=== PATIENT | female | born 1965 | race Caucasian/White ===

== ENCOUNTER 2016-05-22 21:46 | Inpatient (IN) | payer OTHER ==
[2016-05-22 22:28] LABS: RBC URINE 2 /hpf (0-3); URINE BACTERIA RARE (<OCC); URINE BILIRUBIN NEGATIVE (NEGATIVE); URINE BLOOD NEGATIVE (NEGATIVE); URINE COLOR Yellow (YELLOW); URINE GLUCOSE (UA) NORMAL (Normal); URINE KETONE 1+ mg/dL (NEGATIVE); URINE LEUKOCYTE ESTERASE NEG Leu/uL (Negative); URINE PROTEIN NEGATIVE (NEGATIVE); URINE UROBILINOGEN NORMAL mg/dL (0.2-1.0); WBC URINE 3 /hpf (0-5)
[2016-05-22] MEDS ORDERED: Sodium Chloride 0.9% 1,000 ML IV ONE (22:28)
--- NOTE | 2016-05-22 22:28 | C.PDOC ---
History Of Present Illness Patient presents to the ED with complaints of abdominal pain, nausea, and diarrhea for a few days. Patient denies any back pain, vomiting, constipation, urinary complaints, or any other complaints. Time Seen by Provider: 05/22/16 22:28 Chief Complaint (Nursing): Abdominal Pain History Per: Patient History/Exam Limitations: no limitations Onset/Duration Of Symptoms: Days Current Symptoms Are (Timing): Still Present Severity: Mild Pain Scale Rating Of: 4 Location Of Pain/Discomfort: Epigastric Radiation Of Pain To:: None Quality Of Discomfort: "Pain" Associated Symptoms: Nausea, Diarrhea. denies: Vomiting, Back Pain, Constipation, Urinary Symptoms Exacerbating Factors: None Alleviating Factors: None Last Bowel Movement: Today Recent travel outside of the [place]: No Past Medical History Reviewed: Historical Data, Nursing Documentation, Vital Signs Vital Signs: Last Vital Signs Temp 98.2 F 05/22/16 22:48 Pulse 80 05/22/16 22:48 Resp 14 05/22/16 22:48 BP 120/80 05/22/16 22:48 Pulse Ox 98 05/22/16 22:48 - Medical History PMH: Benign Prostatic Hyperplasia, Bipolar Disorder, Depression, HTN Denies: Diabetes, Hepatitis, HIV, Seizures, Sexually Transmitted Disease Surgical History: Appendectomy - [facility] DETOXIFICATION SERVICES FOR SUBSTANCE ABUSE TREATMENT (10/02/15) GROUP TRAINING AND DEVELOPMENT MANAGER FOR SUBSTANCE ABUSE TREATMENT, PSYCHOEDUCATION (10/02/15) Family History: States: Unknown Family Hx - Social History Hx Tobacco Use: No Hx Alcohol Use: Yes Hx Substance Use: No - Immunization History Hx Tetanus Toxoid Vaccination: No Hx Influenza Vaccination: No Hx Pneumococcal Vaccination: No Review Of Systems Gastrointestinal: Positive for: Nausea, Abdominal Pain, Diarrhea. Negative for : Vomiting, Constipation Musculoskeletal: Negative for: Back Pain Physical Exam - Physical Exam Appears: Non-toxic Skin: Warm, Dry Gastrointestinal/Abdominal: Soft, Tenderness (Mild epigastric tenderness), No Guarding, No Rebound Extremity: Normal ROM, No Tenderness Neurological/Psych: Oriented x3, Normal Speech ED Course And Treatment - Laboratory Results Result Diagrams: 05/22/16 22:37 05/22/16 22:37 O2 Sat by Pulse Oximetry: 99 Pulse Ox Interpretation: Normal Progress Note: blood work, ivf, ct scan. spoke with assistant professor surgical technology. will come and see the pt Disposition Discussed With : Darnell Alfaro Comment: accepted the pt on his service and tookover the care at 2:07AM Doctor Will See Patient In The: ED Counseled Patient/Family Regarding: Studies Performed, Diagnosis - Disposition Disposition: HOSPITALIZED Disposition Time: 22:28 Condition: FAIR - POA Present On Arrival: None - Clinical Impression Clinical Impression: Abdominal pain, SBO (small bowel obstruction) - Scribe Statement The provider has reviewed the documentation as recorded by the Scribe Carlos Christy All medical record entries made by the Ladiibradha were at my direction and personally dictated by me. I have reviewed the chart and agree that the record accurately reflects my personal performance of the history, physical exam, medical decision making, and the department course for this patient. I have also personally directed, reviewed, and agree with the discharge instructions and disposition. Decision To Admit - Pt Status Changed To: Hospital Disposition Of: Observation - . Bed Request Type: Regular Admitting Physician: Darnell Alfaro Patient Diagnosis: Abdominal pain, SBO (small bowel obstruction)
[2016-05-22] MEDS ORDERED: Sodium Chloride 0.9% 1,000 ML ONE (22:41)
[2016-05-22 22:43] LABS: BASO # 0.1 K/uL (0.0-0.2); EOS # 0.1 K/uL (0.0-0.7); EOS % 0.9 % (0.0-4.0); HEMATOCRIT 40.6 % (34.0-47.0); LYMPH # 1.6 K/uL (1.0-4.3); LYMPH % 21.2 % (20.0-40.0); MEAN CELL VOLUME 85.2 fL (81.0-99.0); MEAN CORPUSCULAR HEMOGLOBIN 28.6 pg (27.0-31.0); MEAN CORPUSCULAR HGB CONC 33.6 g/dL (33.0-37.0); MEAN PLATELET VOLUME 8.5 fL (7.2-11.7); MONO # 0.6 K/uL (0.0-0.8); MONO % 7.7 % (0.0-10.0); NRBC % 0.1 % (0.0-2.0); RED CELL DISTRIBUTION WIDTH 12.7 % (11.5-14.5); WHITE BLOOD COUNT 7.7 K/uL (4.8-10.8)
[2016-05-22 22:52] LABS: CHLORIDE 96 mmol/L (98-107); POTASSIUM 2.7 mmol/L (3.6-5.2); SODIUM 139 mmol/L (132-148)
[2016-05-22 22:54] LABS: ALB/GLOB RATIO 1.3 (1.0-2.1); AST/SGOT 27 U/L (14-36); BILIRUBIN,TOTAL 0.4 mg/dL (0.2-1.3); CARBON DIOXIDE 27 mmol/L (22-30); GFR AFRICAN-AMERICAN > 60; TOTAL PROTEIN 7.2 g/dL (6.3-8.3)
[2016-05-22 22:55] LABS: ALKALINE PHOSPHATASE 61 U/L (38-126); ALT/SGPT 26 U/L (9-52); BLOOD UREA NITROGEN 14 mg/dL (7-17); CALCIUM 8.5 mg/dl (8.6-10.4); GLUCOSE,RANDOM 97 mg/dL (65-105)
[2016-05-22] MEDS ORDERED: Potassium Chloride 10 mEq ER Tab PO STA (22:55)
[2016-05-22] MEDS ORDERED: Potassium Chloride 20 mEq ER Tab PO ONE (23:05)
[2016-05-22] MEDS ORDERED: HYDROmorphone 1 mg/ml ISec IVP STA (23:42)
[2016-05-23] MEDS ORDERED: Iodixanol 320 MG/ML 100 ML BOTTLE IV ONE (00:13)
[2016-05-23] MEDS: Sodium Chloride 0.9% 1,000 ML IV SCH ×3 (04:02→23:12)
--- NOTE | 2016-05-23 04:57 | CP.PCM.HP ---
<Ling Fink - Last Filed: 05/23/16 04:42> History of Present Illness - History of Present Illness History of Present Illness: CC: "Abdominal pain and diarrhea" HPI: Patient is a 50F with medical history of hypertension and multiple abdominal surgeries including gastric bypass (10 years ago), appendectomy, , and tubal ligation who presents to the emergency department with abdominal pain and multiple episodes of watery diarrhea x 2 days. Patient states she came home from work when she suddenly developed severe sharp, 10/10 intensity left lower quadrant abdominal pain. Soon after developing pain, she started to have watery , light brown diarrhea and associated nausea. Patient states she has poor po intake. She tried to drink tea and have chicken soup but subsequently developed diarrhea. She also tried using a heating pad to her abdomen but had no relief of pain. Patient states she recently saw her primary care physician who was concerned in regards to patient having rapid weight loss. Patient states prior to developing current symptoms she had normal bowel movements. She denies fever , chills, recent travel, sick contacts, chest pain, shortness of breath, vomiting, back pain, hematochezia and urinary symptoms. PMD: Dr. Gates PMH: hypertension, alcohol abuse Medications: Hydrochlorothiazide 25 mg po daily, Amlodipine 5 mg po daily Allergies: NKDA Family History: DMII, HTN, Asthma Surgical History: gastric bypass, appendectomy, , tubal ligation, carpal tunnel release Social: Previously smoked 1ppd cigarettes for 16 years. Sober for 8 months. Denies illicit drug use. Present on Admission - Present on Admission Any Indicators Present on Admission: No History of DVT/PE: No History of Uncontrolled Diabetes: No Urinary Catheter: No Decubitus Ulcer Present: No Review of Systems - Constitutional Constitutional: Weight Loss. absent: Chills, Fever, Increased Appetite, Malaise - EENT Eyes: absent: Blurred Vision, Change in Vision Nose/Mouth/Throat: absent: Nasal Congestion, Nasal Discharge - Cardiovascular Cardiovascular: absent: Chest Pain, Dyspnea, Leg Edema - Respiratory Respiratory: absent: Cough, Dyspnea, Chest Congestion - Gastrointestinal Gastrointestinal: Abdominal Pain, Diarrhea, Nausea. absent: Bloating, Constipation, Heartburn, Hematochezia, Melena, Vomiting - Genitourinary Genitourinary: absent: Change in Urinary Stream, Dysuria, Urinary Urgency - Musculoskeletal Musculoskeletal: Arthralgias, Joint Swelling - Integumentary Integumentary: absent: Changing Lesions, New Lesions - Neurological Neurological: absent: Weakness - Psychiatric Psychiatric: absent: Anxiety, Depression - Endocrine Endocrine: absent: Cold Intolorance, Heat Intolorance Past Patient History - Infectious Disease Hx of Infectious Diseases: None - Past Medical History & Family History Past Medical History?: Yes - Past Social History Smoking Status: Never Smoked - CARDIAC Hx Cardiac Disorders: Yes Hx Hypertension: Yes - PULMONARY Hx Respiratory Disorders: No Hx Tuberculosis: No - NEUROLOGICAL Hx Neurological Disorder: No Hx Seizures: No - HEENT Hx HEENT Problems: No - RENAL Hx Chronic Kidney Disease: No - ENDOCRINE/METABOLIC Hx Endocrine Disorders: No - HEMATOLOGICAL/ONCOLOGICAL Hx Blood Disorders: No Hx Human Immunodeficiency Virus (HIV): No - INTEGUMENTARY Hx Dermatological Problems: No - MUSCULOSKELETAL/RHEUMATOLOGICAL Hx Falls: No - GASTROINTESTINAL Hx Gastrointestinal Disorders: No - GENITOURINARY/GYNECOLOGICAL Hx Genitourinary Disorders: No Hx Sexually Transmitted Disorders: No - PSYCHIATRIC Hx Substance Use: No - SURGICAL HISTORY Hx Surgeries: Yes Hx Appendectomy: Yes Hx Section: Yes Hx Gastric Bypass Surgery: Yes - ANESTHESIA Hx Anesthesia: Yes Hx Anesthesia Reactions: No Hx Malignant Hyperthermia: No Has any member of the family had a problem w/ anesthesia?: No Meds Allergies/Adverse Reactions: Allergies Allergy/AdvReac Type Severity Reaction Status Date / Time No Known Allergies Allergy Verified 10/02/15 13:25 Physical Exam - Constitutional Appears: Non-toxic, No Acute Distress - Head Exam Head Exam: ATRAUMATIC, NORMAL INSPECTION, NORMOCEPHALIC - Eye Exam Eye Exam: EOMI, Normal appearance, PERRL - ENT Exam ENT Exam: Mucous Membranes Moist - Respiratory Exam Respiratory Exam: Clear to Auscultation Bilateral, NORMAL BREATHING PATTERN. absent: Rales, Rhonchi, Wheezes - Cardiovascular Exam Cardiovascular Exam: +S1, +S2. absent: Tachycardia, Diastolic murmur, Systolic Murmur - GI/Abdominal Exam GI & Abdominal Exam: Hypoactive Bowel Sounds, Tenderness. absent: Distended, Firm, Guarding Additional comments: TTP left lower abdominal quadrant surgical scars noted to abdomen - Extremities Exam Extremities exam: Positive for: normal inspection. Negative for: pedal edema, tenderness - Back Exam Back exam: NORMAL INSPECTION - Neurological Exam Neurological exam: Alert, Oriented x3 - Psychiatric Exam Psychiatric exam: Normal Affect, Normal Mood - Skin Skin Exam: Intact, Normal Color Results - Vital Signs Recent Vital Signs: Last Vital Signs Temp 97.9 F 05/23/16 03:37 Pulse 67 05/23/16 03:37 Resp 18 05/23/16 04:10 BP 109/74 05/23/16 03:37 Pulse Ox 98 05/23/16 03:37 - Labs Result Diagrams: 05/22/16 22:37 05/22/16 22:37 Assessment & Plan - Assessment and Plan (Free Text) Assessment: 1. Abdominal Pain f/u Abdomen/Pelvis CT Zofran 4 mg IVP q6 PRN for nausea Toradol 30 mg IVP q6h prn for pain General Surgery, Dr. Capone, consulted. 2. Diarrhea f/u stool studies, c.diff f/u AM labs, electrolytes Continue Normal saline IV @100 3. Hypertension Continue home medications: Hydrochlorothiazide 25 mg po daily Norvasc 5 mg po daily Monitor 4. Prophylaxis Protonix 40 mg IVP daily SCD Heart Healthy Diet as tolerated - Date & Time Date: 05/23/16 Time: 05:08 <Darnell Alfaro - Last Filed: 05/23/16 06:35> Results - Vital Signs Recent Vital Signs: Last Vital Signs Temp 97.9 F 05/23/16 03:37 Pulse 67 05/23/16 03:37 Resp 18 05/23/16 04:10 BP 109/74 05/23/16 03:37 Pulse Ox 98 05/23/16 03:37 - Labs Result Diagrams: 05/22/16 22:37 05/22/16 22:37 Assessment & Plan - Date & Time Date: 05/23/16 (I have seen and examined the patient. I agree with the findings and plan of care as documented by Dr. Fink. Patient with abdominal pain. Consult to surgery. Follow up official CT results. Symptomatic treatment. Check stool studies for diarrhea. Monitor for acute changes.) Time: 06:34 Attending/Attestation - Attestation I have personally seen and examined this patient.: Yes I have fully participated in the care of the patient.: Yes I have reviewed all pertinent clinical information: Yes
[2016-05-23] MEDS ORDERED: Morphine 4 MG/ML VIAL IVP PRN (06:06)
--- NOTE | 2016-05-23 06:35 | CP.PCM.CON ---
History of Present Illness - History of Present Illness History of Present Illness: Surgery: Dr. Capone Reason for Consult: partial SBO HPI: 50 y/o female w/ pmh of HTN and gastric bypass surgery 9 years ago presents complaining of multiple episodes of diarrhea and left sided abdominal pain that started 2 days prior to presentation. She denies blood in diarrhea. She states the pain only occurs while she is having diarrhea. She states over the past 2 days her appetite has been poor. She denies vomiting but report nausea. She denies radiation of the pain to remaining abdomen. She report chills yesterday but denies fever. She states she has never had symptoms like this before. She reports having symptoms of gastritis about 1 year ago in which she underwent EGD. Patient reports anastomosis looked fine but she did have stomach inflammation. Otherwise no problems since gastric bypass since. She denies sick contacts or strange food types. PMH: HTN, cholelithiasis PSH: lap band then 1 year after lap gastric bypass, csection, open appy age 13 Social: denies ETOH, tobacco to drug use. Review of Systems - Review of Systems All systems: reviewed and no additional remarkable complaints except Review of Systems: unless stated in HPI - Constitutional Constitutional: Anorexia, Chills. absent: Fever - EENT Eyes: absent: Blurred Vision, Change in Vision Nose/Mouth/Throat: absent: Nasal Congestion, Nasal Discharge - Cardiovascular Cardiovascular: absent: Chest Pain, Diaphoresis - Respiratory Respiratory: absent: Cough, Wheezing - Gastrointestinal Gastrointestinal: Abdominal Pain, Cramping, Diarrhea, Nausea. absent: Belching , Bloating, Excessive Flatus, Hematochezia, Melena, Vomiting - Genitourinary Genitourinary: absent: Hematuria, Pyuria - Endocrine Endocrine: absent: Polydipsia, Polyphagia - Hematologic/Lymphatic Hematologic: absent: Easy Bleeding, Easy Bruising Past Patient History - Infectious Disease Hx of Infectious Diseases: None - Past Medical History & Family History Past Medical History?: Yes - Past Social History Smoking Status: Never Smoked - CARDIAC Hx Cardiac Disorders: Yes Hx Hypertension: Yes - PULMONARY Hx Respiratory Disorders: No Hx Tuberculosis: No - NEUROLOGICAL Hx Neurological Disorder: No Hx Seizures: No - HEENT Hx HEENT Problems: No - RENAL Hx Chronic Kidney Disease: No - ENDOCRINE/METABOLIC Hx Endocrine Disorders: No - HEMATOLOGICAL/ONCOLOGICAL Hx Blood Disorders: No Hx Human Immunodeficiency Virus (HIV): No - INTEGUMENTARY Hx Dermatological Problems: No - MUSCULOSKELETAL/RHEUMATOLOGICAL Hx Falls: No - GASTROINTESTINAL Hx Gastrointestinal Disorders: No - GENITOURINARY/GYNECOLOGICAL Hx Genitourinary Disorders: No Hx Sexually Transmitted Disorders: No - PSYCHIATRIC Hx Substance Use: No - SURGICAL HISTORY Hx Surgeries: Yes Hx Appendectomy: Yes Hx Section: Yes Hx Gastric Bypass Surgery: Yes - ANESTHESIA Hx Anesthesia: Yes Hx Anesthesia Reactions: No Hx Malignant Hyperthermia: No Has any member of the family had a problem w/ anesthesia?: No Meds Allergies/Adverse Reactions: Allergies Allergy/AdvReac Type Severity Reaction Status Date / Time No Known Allergies Allergy Verified 10/02/15 13:25 - Medications Medications: Current Medications Amlodipine Besylate (Norvasc) 5 mg PO DAILY [facility] Hydrochlorothiazide (Hydrodiuril) 25 mg PO DAILY [facility] Sodium Chloride (Sodium Chloride 0.9%) 1,000 mls @ 100 mls/hr IV .Q10H [facility] Last Admin: 05/23/16 04:02 Dose: 100 mls/hr Influenza Virus Vaccine (Afluria) 45 mcg IM .ONCE ONE Stop: 05/26/16 10:01 Ketorolac Tromethamine (Toradol) 30 mg IVP Q6 PRN PRN Reason: Pain, moderate (4-7) Last Admin: 05/23/16 03:59 Dose: 30 mg Morphine Sulfate (Morphine) 4 mg IVP Q4H PRN PRN Reason: Pain, severe (8-10) Morphine Sulfate (Morphine) 2 mg IVP Q4 PRN PRN Reason: Pain, moderate (4-7) Ondansetron HCl (Zofran Inj) 4 mg IVP Q6 PRN PRN Reason: Nausea/Vomiting Pantoprazole Sodium (Protonix Inj) 40 mg IVP DAILY [facility] Pneumococcal Polyvalent Vaccine (Pneumovax 23 Vaccine) 0.5 ml IM .ONCE ONE Stop: 05/26/16 10:01 Physical Exam - Constitutional Appears: Non-toxic, No Acute Distress - Head Exam Head Exam: ATRAUMATIC, NORMOCEPHALIC - Eye Exam Eye Exam: EOMI, Normal appearance - ENT Exam ENT Exam: Mucous Membranes Moist - Respiratory Exam Respiratory Exam: NORMAL BREATHING PATTERN. absent: Respiratory Distress - Cardiovascular Exam Cardiovascular Exam: REGULAR RHYTHM. absent: Tachycardia - GI/Abdominal Exam GI & Abdominal Exam: Soft, Tenderness (minimal in LLQ). absent: Distended, Guarding, Hernia Additional comments: multiple laparoscopic incisions fron gastric bypass and lap band procedures. Open appendectomy scar in RLQ - Rectal Exam Rectal Exam: Deferred - Extremities Exam Extremities exam: Positive for: normal inspection. Negative for: calf tenderness - Neurological Exam Neurological exam: Alert, Oriented x3 - Psychiatric Exam Psychiatric exam: Normal Affect, Normal Mood - Skin Skin Exam: Dry, Normal Color, Warm Results - Vital Signs Recent Vital Signs: Last Vital Signs Temp 97.9 F 05/23/16 03:37 Pulse 67 05/23/16 03:37 Resp 18 05/23/16 04:10 BP 109/74 05/23/16 03:37 Pulse Ox 98 05/23/16 03:37 - Labs Result Diagrams: 05/22/16 22:37 05/22/16 22:37 Assessment & Plan - Assessment and Plan (Free Text) Assessment: 50 y/o female w/ diarrhea and abdominal pain most likely 2/2 enteritis, less likely obstruction Plan: -NPO for now, possible trial of clears later today -IVFs -pain control -nausea control -serial abdominal exams -stool studies -medical management per primary team -d/w Dr. Liborio Gonzales PGY1
[2016-05-23 07:27] LABS: CHLORIDE 100 mmol/L (98-107)
[2016-05-23 07:28] LABS: BASO % 0.7 % (0.0-2.0); EOS # 0.1 K/uL (0.0-0.7); EOS % 1.6 % (0.0-4.0); HEMATOCRIT 35.9 % (34.0-47.0); LYMPH # 2.3 K/uL (1.0-4.3); LYMPH % 43.7 % (20.0-40.0); MEAN CELL VOLUME 85.1 fL (81.0-99.0); MEAN CORPUSCULAR HEMOGLOBIN 28.4 pg (27.0-31.0); MEAN CORPUSCULAR HGB CONC 33.4 g/dL (33.0-37.0); MONO # 0.5 K/uL (0.0-0.8); MONO % 8.9 % (0.0-10.0); NRBC % 0.1 % (0.0-2.0); POTASSIUM 2.7 mmol/L (3.6-5.2); RED CELL DISTRIBUTION WIDTH 12.7 % (11.5-14.5); SODIUM 140 mmol/L (132-148); WHITE BLOOD COUNT 5.4 K/uL (4.8-10.8)
[2016-05-23 07:30] LABS: BILIRUBIN,TOTAL 0.2 mg/dL (0.2-1.3); CARBON DIOXIDE 26 mmol/L (22-30); CHOLESTEROL 108 mg/dL (0-199); GFR AFRICAN-AMERICAN > 60
[2016-05-23 07:31] LABS: ALB/GLOB RATIO 1.4 (1.0-2.1); ALKALINE PHOSPHATASE 51 U/L (38-126); ALT/SGPT 24 U/L (9-52); AST/SGOT 27 U/L (14-36); BLOOD UREA NITROGEN 12 mg/dL (7-17); CALCIUM 8.1 mg/dl (8.6-10.4); GLUCOSE,RANDOM 74 mg/dL (65-105); MAGNESIUM 1.8 mg/dL (1.6-2.3); PHOSPHOROUS 4.3 mg/dL (2.5-4.5); TOTAL PROTEIN 6.2 g/dL (6.3-8.3)
--- NOTE | 2016-05-23 08:25 | CT ---
PROCEDURE: CT Abdomen and Pelvis with intravenous contrast HISTORY: Abdominal pain COMPARISON: None. TECHNIQUE: Axial computed tomographic images of the abdomen and pelvis were performed with intravenous contrast. Subsequently, sagittal coronal reformatted images were obtained. Radiation dose: Total exam DLP = 1432 mGy-cm. FINDINGS: LOWER THORAX: Mild bibasilar atelectasis. Question tiny hiatal hernia. LIVER: Unremarkable. No gross lesion or ductal dilatation. GALLBLADDER AND BILE DUCTS: Contracted gallbladder. Cholelithiasis. PANCREAS: Unremarkable. No gross lesion or ductal dilatation. SPLEEN: Unremarkable. ADRENALS: Nodular thickening of the adrenal glands. KIDNEYS AND URETERS: Question punctate 1-2 millimeter nonobstructive calculus in the mid right renal pelvis. VASCULATURE: Mild atherosclerotic calcification in the aorta. BOWEL: Mildly prominent fluid-filled small bowel loops in the pelvis measuring up to 3 centimeters. This may represent focal ileus/ enteritis versus evolving partial small bowel obstruction versus additional etiology. Clinical correlation and if indicated follow-up may be obtained. Stomach demonstrates changes of prior gastric bypass. APPENDIX: Appendix not well identified. PERITONEUM: Unremarkable. No free fluid. No free air. LYMPH NODES: Unremarkable. No enlarged lymph nodes. BLADDER: Decompressed urinary bladder. REPRODUCTIVE: Unremarkable. BONES: Moderate degenerative changes in the spine. Mild diffuse osteopenia. Prominent posterior disc osteophyte complex at the L5-S1 level. OTHER FINDINGS: None. IMPRESSION: Mildly prominent fluid-filled small bowel loops in the pelvis measuring up to 3 centimeters. It is unclear if this represents focal ileus/ enteritis versus evolving early partial small bowel obstruction versus additional etiology. Please correlate clinically and if indicated follow-up may be obtained. Contracted gallbladder. Cholelithiasis. Question punctate 1-2 millimeter nonobstructive calculus in the mid right renal pelvis. These findings were preliminarily reported at 12:57 a.m. on 05/23/[address] Bridger Wu from [employer].
--- NOTE | 2016-05-23 09:00 | CP.PCM.PN ---
Subjective - Date & Time of Evaluation Date of Evaluation: 05/23/16 Time of Evaluation: 07:50 - Subjective Subjective: PGY1 Medicine Note - Dr. Keenan Patient seen and examined at bedside. No overnight events per nursing. Patient reports last episode of diarrhea last night. C/o LLQ pain, 2/10. Tolerating liquid diet; denies n/v, d/c. Denies f/c, chest pain, SOB, back pain, hematochezia, urinary symptoms, or any additional complaints. Asking to go home soon. Objective - Vital Signs/Intake and Output Vital Signs (last 24 hours): Temp Pulse Resp BP Pulse Ox 97.6 F 62 20 108/72 96 05/23/16 08:00 05/23/16 08:00 05/23/16 08:00 05/23/16 08:00 05/23/16 08:00 - Medications Medications: Current Medications Amlodipine Besylate (Norvasc) 5 mg PO DAILY [facility] Hydrochlorothiazide (Hydrodiuril) 25 mg PO DAILY [facility] Sodium Chloride (Sodium Chloride 0.9%) 1,000 mls @ 100 mls/hr IV .Q10H [facility] Last Admin: 05/23/16 04:02 Dose: 100 mls/hr Influenza Virus Vaccine (Afluria) 45 mcg IM .ONCE ONE Stop: 05/26/16 10:01 Ketorolac Tromethamine (Toradol) 30 mg IVP Q6 PRN PRN Reason: Pain, moderate (4-7) Last Admin: 05/23/16 03:59 Dose: 30 mg Morphine Sulfate (Morphine) 4 mg IVP Q4H PRN PRN Reason: Pain, severe (8-10) Morphine Sulfate (Morphine) 2 mg IVP Q4 PRN PRN Reason: Pain, moderate (4-7) Ondansetron HCl (Zofran Inj) 4 mg IVP Q6 PRN PRN Reason: Nausea/Vomiting Pantoprazole Sodium (Protonix Inj) 40 mg IVP DAILY [facility] Pneumococcal Polyvalent Vaccine (Pneumovax 23 Vaccine) 0.5 ml IM .ONCE ONE Stop: 05/26/16 10:01 - Labs Labs: 05/23/16 07:11 05/23/16 07:11 - Additional Findings Additional findings: - Constitutional Appears: Non-toxic, No Acute Distress - Head Exam Head Exam: ATRAUMATIC, NORMAL INSPECTION, NORMOCEPHALIC - Eye Exam Eye Exam: EOMI, Normal appearance, PERRL - ENT Exam ENT Exam: Mucous Membranes Moist - Respiratory Exam Respiratory Exam: Clear to Auscultation Bilateral, NORMAL BREATHING PATTERN. absent: Rales, Rhonchi, Wheezes - Cardiovascular Exam Cardiovascular Exam: +S1, +S2. absent: Tachycardia, Diastolic murmur, Systolic Murmur - GI/Abdominal Exam GI & Abdominal Exam: Hypoactive Bowel Sounds, Tenderness. absent: Distended, Firm, Guarding Additional comments: LLQ tenderness, persists surgical scars noted to abdomen - Extremities Exam Extremities exam: Positive for: normal inspection. Negative for: pedal edema, tenderness - Back Exam Back exam: NORMAL INSPECTION - Neurological Exam Neurological exam: Alert, Oriented x3 - Psychiatric Exam Psychiatric exam: Normal Affect, Normal Mood - Skin Skin Exam: Intact, Normal Color Assessment and Plan - Assessment and Plan (Free Text) Assessment: 1. Abdominal Pain 05/23: Reduced pain medication. -Abdomen/Pelvis CT 05/22: -Mildly prominent fluid-filled small bowel loops in the pelvis measuring up to 3 centimeters. It is unclear if this represents focal ileus/ enteritis versus evolving early partial small bowel obstruction versus additional etiology -Contracted gallbladder. Cholelithiasis. -Question punctate 1-2 millimeter nonobstructive calculus in the mid right renal pelvis. -Surgery Consult, Dr. Capone, f/u recs -NPO for now, possible trial of clears -IVFs, pain control, nausea control -serial abdominal exams Zofran 4 mg IVP q6 PRN for nausea Toradol 30 mg IVP q6h prn for pain 2. Diarrhea f/u stool studies f/u c.diff f/u AM labs, electrolytes Continue Normal saline IV @100 3. Hypertension 05/23: STOP Hydrochlorothiazide 25 mg po daily - due to hypokalemia 05/23: STOP Norvasc 5 mg po daily Monitor BP 4. Electrolyte imbalance -Hypokalemia, k2.7 - monitor and replete 5. Prophylaxis Protonix 40 mg IVP daily [facility] Heart Healthy Diet as tolerated
[2016-05-23] MEDS ORDERED: Potassium Chloride 20 mEq/15 ml LIQ UD PO ONE ×3 (09:58→22:45)
[2016-05-23] MEDS ORDERED: Potassium Chloride 20 mEq ER Tab PO ONE (10:45)
[2016-05-23] MEDS: Potassium Chloride 10 mEq 100 ML IVPB SCH ×2 (11:01→16:09)
[2016-05-23] MEDS ORDERED: Potassium Chloride 20 mEq 100 ML IVPB ONE ×2 (16:58→22:00)
[2016-05-23 21:17] LABS: CHLORIDE 100 mmol/L (98-107); POTASSIUM 3.4 mmol/L (3.6-5.2); SODIUM 136 mmol/L (132-148)
[2016-05-23 21:20] LABS: BLOOD UREA NITROGEN 9 mg/dL (7-17); CALCIUM 7.8 mg/dl (8.6-10.4); CARBON DIOXIDE 23 mmol/L (22-30); GFR AFRICAN-AMERICAN > 60; GLUCOSE,RANDOM 80 mg/dL (65-105)
[2016-05-23] MEDS: Potassium Chloride 20 mEq/15 ml LIQ UD PO ONE ×2 (21:45→22:12)
[2016-05-24 01:17] VITALS: RESP 20
[2016-05-24 07:25] LABS: BASO % 0.8 % (0.0-2.0); EOS # 0.1 K/uL (0.0-0.7); HEMATOCRIT 38.3 % (34.0-47.0); LYMPH # 1.4 K/uL (1.0-4.3); LYMPH % 26.6 % (20.0-40.0); MEAN CELL VOLUME 85.9 fL (81.0-99.0); MEAN CORPUSCULAR HEMOGLOBIN 28.5 pg (27.0-31.0); MEAN CORPUSCULAR HGB CONC 33.2 g/dL (33.0-37.0); MEAN PLATELET VOLUME 9.1 fL (7.2-11.7); MONO # 0.6 K/uL (0.0-0.8); MONO % 11.5 % (0.0-10.0); NRBC % 0.1 % (0.0-2.0); RED CELL DISTRIBUTION WIDTH 12.3 % (11.5-14.5); WHITE BLOOD COUNT 5.2 K/uL (4.8-10.8)
[2016-05-24 07:44] LABS: CHLORIDE 102 mmol/L (98-107); POTASSIUM 3.9 mmol/L (3.6-5.2); SODIUM 138 mmol/L (132-148)
[2016-05-24 07:46] LABS: AST/SGOT 35 U/L (14-36); BILIRUBIN,TOTAL 0.4 mg/dL (0.2-1.3); CARBON DIOXIDE 22 mmol/L (22-30); GFR AFRICAN-AMERICAN > 60
[2016-05-24 07:47] LABS: ALB/GLOB RATIO 1.3 (1.0-2.1); ALKALINE PHOSPHATASE 52 U/L (38-126); ALT/SGPT 27 U/L (9-52); BLOOD UREA NITROGEN 8 mg/dL (7-17); CALCIUM 8.3 mg/dl (8.6-10.4); GLUCOSE,RANDOM 70 mg/dL (65-105); MAGNESIUM 1.8 mg/dL (1.6-2.3); PHOSPHOROUS 3.5 mg/dL (2.5-4.5); TOTAL PROTEIN 6.4 g/dL (6.3-8.3)
--- NOTE | 2016-05-24 08:33 | CP.PCM.PN ---
Subjective - Date & Time of Evaluation Date of Evaluation: 05/24/16 Time of Evaluation: 07:00 - Subjective Subjective: General Surgery Progress Note: Dr. Capone Patient seen and examined this morning. NAOMY. Patient reports she is still having multiple bouts of diarrhea. Reports some abdominal pain along LLQ. Denies fever/chills, nausea/vomiting. Objective - Vital Signs/Intake and Output Vital Signs (last 24 hours): Temp Pulse Resp BP Pulse Ox 98.2 F 68 20 110/76 97 05/24/16 00:00 05/24/16 00:00 05/24/16 00:00 05/24/16 00:00 05/24/16 00:00 Intake and Output: 05/24/16 05/24/16 06:59 18:59 Intake Total 800 Balance 800 - Medications Medications: Current Medications Sodium Chloride (Sodium Chloride 0.9%) 1,000 mls @ 100 mls/hr IV .Q10H [facility] Last Admin: 05/23/16 18:27 Dose: 100 mls/hr Influenza Virus Vaccine (Afluria) 45 mcg IM .ONCE ONE Stop: 05/26/16 10:01 Morphine Sulfate (Morphine) 1 mg IVP Q4 PRN PRN Reason: Pain, moderate (4-7) Last Admin: 05/24/16 06:35 Dose: 1 mg Ondansetron HCl (Zofran Inj) 4 mg IVP Q6 PRN PRN Reason: Nausea/Vomiting Last Admin: 05/23/16 13:40 Dose: 4 mg Pantoprazole Sodium (Protonix Inj) 40 mg IVP DAILY [facility] Last Admin: 05/23/16 11:00 Dose: 40 mg Pneumococcal Polyvalent Vaccine (Pneumovax 23 Vaccine) 0.5 ml IM .ONCE ONE Stop: 05/26/16 10:01 - Labs Labs: 05/24/16 07:14 05/24/16 07:14 - Constitutional Appears: No Acute Distress - Head Exam Head Exam: NORMOCEPHALIC - Eye Exam Eye Exam: Normal appearance - ENT Exam ENT Exam: Mucous Membranes Moist - Respiratory Exam Respiratory Exam: NORMAL BREATHING PATTERN - Cardiovascular Exam Cardiovascular Exam: +S1, +S2 - GI/Abdominal Exam GI & Abdominal Exam: Soft. absent: Tenderness - Neurological Exam Neurological Exam: Alert, Awake, Oriented x3 - Psychiatric Exam Psychiatric exam: Normal Mood - Skin Skin Exam: Dry, Intact, Warm Assessment and Plan - Assessment and Plan (Free Text) Assessment: 50F w/ abdominal and diarrhea likely 2/2 enteritis -CLD -analgesics -anti-emetics -serial abdominal exams -F/u stool studies -medical management per primary team -d/w Dr. Capone
[2016-05-24] MEDS: Sodium Chloride 0.9% 1,000 ML IV SCH ×2 (13:13→19:11)
--- NOTE | 2016-05-24 22:19 | CP.PCM.PN ---
<Jose Guadalupe Gandhi - Last Filed: 05/24/16 23:25> Subjective - Date & Time of Evaluation Date of Evaluation: 05/24/16 Time of Evaluation: 10:20 - Subjective Subjective: PGY1 Medicine Note - Dr. Keenan Patient is a 50F with medical history of hypertension and multiple abdominal surgeries including gastric bypass (10 years ago), appendectomy, , and tubal ligation who presents to the emergency department with abdominal pain and multiple episodes of watery diarrhea x 2 days. Patient seen and examined at bedside. No overnight events per nursing. Patient reports diarrhea and LLQ pain last night. She denies fever, chills, chest pain, SOB, back pain, hematochezia, urinary symptoms, or any additional complaints. Objective - Vital Signs/Intake and Output Vital Signs (last 24 hours): Temp Pulse Resp BP Pulse Ox 98.1 F 69 20 112/71 97 05/24/16 15:00 05/24/16 15:00 05/24/16 15:00 05/24/16 15:00 05/24/16 15:00 - Medications Medications: Current Medications Sodium Chloride (Sodium Chloride 0.9%) 1,000 mls @ 100 mls/hr IV .Q10H [facility] Last Admin: 05/24/16 19:11 Dose: 100 mls/hr Influenza Virus Vaccine (Afluria) 45 mcg IM .ONCE ONE Stop: 05/26/16 10:01 Morphine Sulfate (Morphine) 1 mg IVP Q4 PRN PRN Reason: Pain, moderate (4-7) Last Admin: 05/24/16 13:06 Dose: 1 mg Ondansetron HCl (Zofran Inj) 4 mg IVP Q6 PRN PRN Reason: Nausea/Vomiting Last Admin: 05/23/16 13:40 Dose: 4 mg Pantoprazole Sodium (Protonix Inj) 40 mg IVP DAILY [facility] Last Admin: 05/24/16 10:02 Dose: 40 mg Pneumococcal Polyvalent Vaccine (Pneumovax 23 Vaccine) 0.5 ml IM .ONCE ONE Stop: 05/26/16 10:01 Saccharomyces Boulardii (Florastor) 250 mg PO DAILY [facility] - Labs Labs: 05/24/16 07:14 05/24/16 07:14 - Constitutional Appears: Non-toxic, No Acute Distress - Head Exam Head Exam: ATRAUMATIC, NORMOCEPHALIC - Eye Exam Eye Exam: EOMI, Normal appearance - ENT Exam ENT Exam: Mucous Membranes Moist - Respiratory Exam Respiratory Exam: Clear to Ausculation Bilateral, NORMAL BREATHING PATTERN - Cardiovascular Exam Cardiovascular Exam: REGULAR RHYTHM, +S1, +S2 - GI/Abdominal Exam GI & Abdominal Exam: Soft, Tenderness - Neurological Exam Neurological Exam: Alert, Awake - Psychiatric Exam Psychiatric exam: Normal Affect, Normal Mood - Skin Skin Exam: Dry, Intact, Normal Color, Warm Assessment and Plan - Assessment and Plan (Free Text) Plan: 1. Abdominal Pain 05/23: Reduced pain medication. -Abdomen/Pelvis CT 05/22: -Mildly prominent fluid-filled small bowel loops in the pelvis measuring up to 3 centimeters. It is unclear if this represents focal ileus/ enteritis versus evolving early partial small bowel obstruction versus additional etiology -Contracted gallbladder. Cholelithiasis. -Question punctate 1-2 millimeter nonobstructive calculus in the mid right renal pelvis. -Surgery Consult, Dr. Capone, f/u recs -NPO for now, possible trial of clears -IVFs, pain control, nausea control -serial abdominal exams Zofran 4 mg IVP q6 PRN for nausea Toradol 30 mg IVP q6h prn for pain 2. Diarrhea f/u stool studies f/u c.diff negative 05/23 f/u AM labs, electrolytes Continue Normal saline IV @100 3. Hypertension 05/23: STOP Hydrochlorothiazide 25 mg po daily - due to hypokalemia 05/23: STOP Norvasc 5 mg po daily Monitor BP 05/24 112/71 4. Electrolyte imbalance -resolved 05/24 5. Prophylaxis Protonix 40 mg IVP daily SCD restarted Heart Healthy Diet as tolerated <Carlton Keenan - Last Filed: 05/25/16 10:21> Objective - Vital Signs/Intake and Output Vital Signs (last 24 hours): Temp Pulse Resp BP Pulse Ox 97.5 F L 64 20 130/73 100 05/25/16 08:00 05/25/16 08:00 05/25/16 08:00 05/25/16 08:00 05/25/16 08:00 Intake and Output: 05/25/16 05/25/16 06:59 18:59 Intake Total 1300 Balance 1300 - Medications Medications: Current Medications Sodium Chloride (Sodium Chloride 0.9%) 1,000 mls @ 100 mls/hr IV .Q10H [facility] Last Admin: 05/24/16 19:11 Dose: 100 mls/hr Influenza Virus Vaccine (Afluria) 45 mcg IM .ONCE ONE Stop: 05/26/16 10:01 Morphine Sulfate (Morphine) 1 mg IVP Q4 PRN PRN Reason: Pain, moderate (4-7) Last Admin: 05/24/16 13:06 Dose: 1 mg Ondansetron HCl (Zofran Inj) 4 mg IVP Q6 PRN PRN Reason: Nausea/Vomiting Last Admin: 05/23/16 13:40 Dose: 4 mg Pantoprazole Sodium (Protonix Inj) 40 mg IVP DAILY [facility] Last Admin: 05/24/16 10:02 Dose: 40 mg Pneumococcal Polyvalent Vaccine (Pneumovax 23 Vaccine) 0.5 ml IM .ONCE ONE Stop: 05/26/16 10:01 Saccharomyces Boulardii (Florastor) 250 mg PO DAILY [facility] Temazepam (Restoril) 15 mg PO HS PRN PRN Reason: Insomnia - Labs Labs: 05/25/16 07:46 05/25/16 07:46 Attending/Attestation - Attestation I have personally seen and examined this patient.: Yes I have fully participated in the care of the patient.: Yes I have reviewed all pertinent clinical information, including history, physical exam and plan: Yes Notes (Text): Patient with previous gastric bypass, admitted with sudden onset of diarrhea; After diarrhea had improved, again reporting multiple episodes of watery diarrhea; started taking PPI since early this month for abd symptoms; C diff neg x 1, will repeat; Likely enteritis, will treat with supportive care; -continue NS at 100 cc/hr -continue to hold BP meds (normotensive)
--- NOTE | 2016-05-25 07:28 | CP.PCM.PN ---
Subjective - Date & Time of Evaluation Date of Evaluation: 05/25/16 Time of Evaluation: 06:45 - Subjective Subjective: Progress Note: Dr. Capone Patient seen and examined this morning. Pt reports having multiple bouts of diarrhea yesterday night. Reports that she felt nauseous throughout the night as well but denied vomiting. Patient states she still feels LLQ pain, which is worsened when having the bouts of diarrhea but wanes when she if not defecating. Denies fever/chills, chest pain/SOB, vomiting. Objective - Vital Signs/Intake and Output Vital Signs (last 24 hours): Temp Pulse Resp BP Pulse Ox 98 F 60 20 111/74 96 05/25/16 00:00 05/25/16 00:00 05/25/16 00:00 05/25/16 00:00 05/25/16 00:00 Intake and Output: 05/25/16 05/25/16 06:59 18:59 Intake Total 1300 Balance 1300 - Medications Medications: Current Medications Sodium Chloride (Sodium Chloride 0.9%) 1,000 mls @ 100 mls/hr IV .Q10H [facility] Last Admin: 05/24/16 19:11 Dose: 100 mls/hr Influenza Virus Vaccine (Afluria) 45 mcg IM .ONCE ONE Stop: 05/26/16 10:01 Morphine Sulfate (Morphine) 1 mg IVP Q4 PRN PRN Reason: Pain, moderate (4-7) Last Admin: 05/24/16 13:06 Dose: 1 mg Ondansetron HCl (Zofran Inj) 4 mg IVP Q6 PRN PRN Reason: Nausea/Vomiting Last Admin: 05/23/16 13:40 Dose: 4 mg Pantoprazole Sodium (Protonix Inj) 40 mg IVP DAILY [facility] Last Admin: 05/24/16 10:02 Dose: 40 mg Pneumococcal Polyvalent Vaccine (Pneumovax 23 Vaccine) 0.5 ml IM .ONCE ONE Stop: 05/26/16 10:01 Saccharomyces Boulardii (Florastor) 250 mg PO DAILY [facility] Temazepam (Restoril) 15 mg PO HS PRN PRN Reason: Insomnia - Labs Labs: 05/24/16 07:14 05/24/16 07:14 - Constitutional Appears: No Acute Distress - Head Exam Head Exam: NORMOCEPHALIC - Eye Exam Eye Exam: Normal appearance - Respiratory Exam Respiratory Exam: NORMAL BREATHING PATTERN - Cardiovascular Exam Cardiovascular Exam: +S1, +S2 - GI/Abdominal Exam GI & Abdominal Exam: Soft, Tenderness Additional comments: LLQ tenderness - Neurological Exam Neurological Exam: Alert, Awake, Oriented x3 - Psychiatric Exam Psychiatric exam: Normal Mood - Skin Skin Exam: Dry, Intact, Warm Assessment and Plan - Assessment and Plan (Free Text) Assessment: 50F w/ abdominal and diarrhea likely 2/2 enteritis -F/u AM labs -Replete lytes as needed -CLD -analgesics -anti-emetics -serial abdominal exams -F/u stool studies -medical management per primary team -d/w Dr. Capone
[2016-05-25 07:53] LABS: BASO % 0.7 % (0.0-2.0); EOS # 0.1 K/uL (0.0-0.7); EOS % 2.4 % (0.0-4.0); HEMATOCRIT 36.3 % (34.0-47.0); LYMPH % 43.9 % (20.0-40.0); MEAN CELL VOLUME 85.2 fL (81.0-99.0); MEAN CORPUSCULAR HEMOGLOBIN 28.4 pg (27.0-31.0); MEAN CORPUSCULAR HGB CONC 33.4 g/dL (33.0-37.0); MEAN PLATELET VOLUME 9.1 fL (7.2-11.7); MONO # 0.6 K/uL (0.0-0.8); MONO % 13.5 % (0.0-10.0); RED CELL DISTRIBUTION WIDTH 12.7 % (11.5-14.5); WHITE BLOOD COUNT 4.4 K/uL (4.8-10.8)
[2016-05-25 08:06] LABS: CHLORIDE 107 mmol/L (98-107); SODIUM 139 mmol/L (132-148)
[2016-05-25 08:07] LABS: POTASSIUM 3.8 mmol/L (3.6-5.2)
[2016-05-25 08:08] LABS: GFR AFRICAN-AMERICAN > 60
[2016-05-25 08:09] LABS: ALB/GLOB RATIO 1.1 (1.0-2.1); ALKALINE PHOSPHATASE 46 U/L (38-126); ALT/SGPT 37 U/L (9-52); AST/SGOT 34 U/L (14-36); BILIRUBIN,TOTAL 0.2 mg/dL (0.2-1.3); BLOOD UREA NITROGEN 7 mg/dL (7-17); CALCIUM 8.1 mg/dl (8.6-10.4); CARBON DIOXIDE 23 mmol/L (22-30); GLUCOSE,RANDOM 68 mg/dL (65-105); PHOSPHOROUS 3.7 mg/dL (2.5-4.5)
[2016-05-25 08:10] LABS: MAGNESIUM 1.7 mg/dL (1.6-2.3)
[2016-05-25] MEDS ORDERED: Saccharomyces Boulardi 250 mg Cap PO SCH (10:00)
[2016-05-25 17:13] VITALS: BP 110/76; PULSE 67; TEMP 98.5; O2SAT 97
--- NOTE | 2016-05-25 22:04 | CP.PCM.DIS ---
Provider - Provider Date of Admission: 05/23/16 03:32 Attending physician: Darnell Alfaro MD Time Spent in preparation of Discharge (in minutes): 35 Hospital Course - Lab Results Lab Results: Most Recent Lab Values WBC 4.4 K/uL (4.8-10.8) L 05/25/16 07:46 RBC 4.27 Mil/uL (3.80-5.20) 05/25/16 07:46 Hgb 12.1 g/dL (11.0-16.0) 05/25/16 07:46 Hct 36.3 % (34.0-47.0) 05/25/16 07:46 MCV 85.2 fL (81.0-99.0) 05/25/16 07:46 MCH 28.4 pg (27.0-31.0) 05/25/16 07:46 MCHC 33.4 g/dL (33.0-37.0) 05/25/16 07:46 RDW 12.7 % (11.5-14.5) 05/25/16 07:46 Plt Count 202 K/uL (130-400) 05/25/16 07:46 MPV 9.1 fL (7.2-11.7) 05/25/16 07:46 Neut % (Auto) 39.5 % (50.0-75.0) L 05/25/16 07:46 Lymph % (Auto) 43.9 % (20.0-40.0) H 05/25/16 07:46 [place] % (Auto) 13.5 % (0.0-10.0) H 05/25/16 07:46 Eos % (Auto) 2.4 % (0.0-4.0) 05/25/16 07:46 Baso % (Auto) 0.7 % (0.0-2.0) 05/25/16 07:46 Neut # 1.8 K/uL (1.8-7.0) 05/25/16 07:46 Lymph # 2.0 K/uL (1.0-4.3) 05/25/16 07:46 [place] # 0.6 K/uL (0.0-0.8) 05/25/16 07:46 Eos # 0.1 K/uL (0.0-0.7) 05/25/16 07:46 Baso # 0.0 K/uL (0.0-0.2) 05/25/16 07:46 Sodium 139 mmol/L (132-148) 05/25/16 07:46 Potassium 3.8 mmol/L (3.6-5.2) 05/25/16 07:46 Chloride 107 mmol/L (98-107) 05/25/16 07:46 Carbon Dioxide 23 mmol/L (22-30) 05/25/16 07:46 Anion Gap 13 (10-20) 05/25/16 07:46 BUN 7 mg/dL (7-17) 05/25/16 07:46 Creatinine 0.6 MG/DL (0.7-1.2) L 05/25/16 07:46 Est GFR ( Amer) > 60 05/25/16 07:46 Est GFR (Non-Af Amer) > 60 05/25/16 07:46 Random Glucose 68 mg/dL (65-105) 05/25/16 07:46 Hemoglobin A1c 5.5 % (4.2-6.5) 05/23/16 07:11 Calcium 8.1 mg/dl (8.6-10.4) L 05/25/16 07:46 Phosphorus 3.7 mg/dL (2.5-4.5) 05/25/16 07:46 Magnesium 1.7 mg/dL (1.6-2.3) 05/25/16 07:46 Total Bilirubin 0.2 mg/dL (0.2-1.3) 05/25/16 07:46 AST 34 U/L (14-36) 05/25/16 07:46 ALT 37 U/L (9-52) 05/25/16 07:46 Alkaline Phosphatase 46 U/L (38-126) 05/25/16 07:46 Total Protein 6.0 g/dL (6.3-8.3) L 05/25/16 07:46 Albumin 3.1 g/dL (3.5-5.0) L 05/25/16 07:46 Globulin 2.9 gm/dL (2.2-3.9) 05/25/16 07:46 Albumin/Globulin Ratio 1.1 (1.0-2.1) 05/25/16 07:46 Triglycerides 85 mg/dL (0-149) D 05/23/16 07:11 Cholesterol 108 mg/dL (0-199) 05/23/16 07:11 LDL Cholesterol Direct 43 mg/dL (0-129) 05/23/16 07:11 HDL Cholesterol 43 mg/dL (30-70) 05/23/16 07:11 Lipase 129 U/L (23-300) 05/22/16 22:37 Thyroxine (T4) 7.00 ug/dL (5.5-11.0) 05/23/16 07:11 TSH 3rd Generation 3.80 mIU/L (0.46-4.68) 05/23/16 07:11 Urine Color Yellow (YELLOW) 05/22/16 22:15 Urine Clarity Hazy (Clear) 05/22/16 22:15 Urine pH 5.0 (5.0-8.0) 05/22/16 22:15 Ur Specific [place] 1.027 (1.003-1.030) 05/22/16 22:15 Urine Protein Negative mg/dL (NEGATIVE) 05/22/16 22:15 Urine Glucose (UA) Normal mg/dL (Normal) 05/22/16 22:15 Urine Ketones 1+ mg/dL (NEGATIVE) H 05/22/16 22:15 Urine Blood Negative (NEGATIVE) 05/22/16 22:15 Urine Nitrate Negative (NEGATIVE) 05/22/16 22:15 Urine Bilirubin Negative (NEGATIVE) 05/22/16 22:15 Urine Urobilinogen Normal mg/dL (0.2-1.0) 05/22/16 22:15 Ur Leukocyte Esterase Neg [facility]/uL (Negative) 05/22/16 22:15 Urine WBC (Auto) 3 /hpf (0-5) 05/22/16 22:15 Urine RBC (Auto) 2 /hpf (0-3) 05/22/16 22:15 Ur Squamous Epith Cells 2 /hpf (0-5) 05/22/16 22:15 Urine Bacteria Rare (<OCC) 05/22/16 22:15 Urine HCG, Qual Negative (NEGATIVE) 05/22/16 22:15 Stool Occult Blood Negative (NEGATIVE) 05/23/16 03:34 Stool Leukocytes, Qual Positive (NEGATIVE) H 05/23/16 03:34 C. difficile Ag & Toxin Negative (NEGATIVE) 05/25/16 Unknown - Hospital Course Hospital Course: Patient is a 50F with medical history of hypertension and multiple abdominal surgeries including gastric bypass (10 years ago), appendectomy, , and tubal ligation who presents to the emergency department with abdominal pain and multiple episodes of watery diarrhea x [address] showed mildly prominent fluid- filled small bowel loops in the pelvis measuring up to 3cm. Unclear if this represents focal ileus/enteritis evolving early partial small bowel obstruction versus additional etiology. Surgery evaluated the patient and agreed the patient 's presentation was less less likely an obstruction vs enteritis. She reported having symptoms of gastritis about 1 year ago in which she underwent EGD. Patient reports anastomosis looked fine but she did have stomach inflammation. Over the coarse of her visit at this hospital, her symptoms improved and she was able to tolerate a regular diet. Pt. was medically stable for discharge. This is a brief overview of her stay, please review her chart for more details. - Date & Time of H&P Date of H&P: 05/26/16 Time of H&P: 09:00 Discharge Exam - Head Exam Head Exam: ATRAUMATIC, NORMOCEPHALIC - Eye Exam Eye Exam: EOMI - ENT Exam ENT Exam: Mucous Membranes Moist - Neck Exam Neck exam: Full Rom - Respiratory Exam Respiratory Exam: Clear to PA & Lateral, NORMAL BREATHING PATTERN, UNREMARKABLE - Cardiovascular Exam Cardiovascular Exam: REGULAR RHYTHM, RRR, +S1, +S2. absent: JVD - GI/Abdominal Exam GI & Abdominal Exam: Normal Bowel Sounds, Soft, Tenderness (mildly), Unremarkable - Extremities Exam Extremities exam: full ROM - Neurological Exam Neurological exam: Alert, Oriented x3 - Psychiatric Exam Psychiatric exam: Normal Affect, Normal Mood - Skin Skin Exam: Dry, Intact, Normal Color, Warm Discharge Plan - Follow Up Plan Condition: GOOD Disposition: HOME/ ROUTINE Instructions: Acute Nausea and Vomiting (DC), Acute Abdominal Pain (DC), Acute Abdominal Pain (GEN), Bowel Obstruction (DC) Additional Instructions: Patient is medically stable for discharge. Please follow up with your primary care physician within one week. Please follow up with your part maker within the week. Please hold your blood pressure medications until you speak with your primary care physician. Please return to hospital if you symptoms return or any other concerning symptoms arise. Thank you for letting us take part in your care.
[2016-05-26] MEDS ORDERED: Influenza Virus Vaccine 45 mcg/0.5 ml Syr IM ONE (10:00)
[2016-05-26] MEDS ORDERED: Pneumococcal 23-Valent Vaccine IM ONE (10:00)
== END 2016-05-25 20:45 | disposition home or self-care (01) | DRG 392 ==
LOC: C.ER 21:46 → C.3T 05-23 02:18 → OBSVTOIN 05-23 03:32
PROVIDERS: ADMIT Family Medicine; ATTEND Family Medicine
DX: K52.9 Noninfective gastroenteritis and colitis, unspecified (principal); K80.20 Calculus of gallbladder without cholecystitis without obstruction; I10 Essential (primary) hypertension; E87.6 Hypokalemia; K29.70 Gastritis, unspecified, without bleeding; Z98.84 Bariatric surgery status; Z90.49 Acquired absence of other specified parts of digestive tract; Z79.899 Other long term (current) drug therapy; Z87.891 Personal history of nicotine dependence

== ENCOUNTER 2017-04-20 03:13 | Emergency (ER) | payer OTHER ==
[2017-04-20] MEDS ORDERED: Promethazine/Cod 6.25mg-10mg/5ml Syr UD PO STA (03:41)
[2017-04-20] MEDS: Albuterol 0.083% Inhal Sol (2.5 mg/3 mL) UD INH SCH ×2 (03:55→04:20)
[2017-04-20] MEDS ORDERED: Albuterol 0.083% Inhal Sol (2.5 mg/3 mL) UD ONE (04:18)
--- NOTE | 2017-04-20 04:58 | C.PDOC ---
History Of Present Illness 51yo female, presents to ER with complaints of bodyaches, fever and cough for the past week. Patient denies any chest pain, shortness of breath. She has no other medical complaints. Time Seen by Provider: 04/20/17 03:31 Chief Complaint (Nursing): Flu-like Symptoms History Per: Patient History/Exam Limitations: no limitations Onset/Duration Of Symptoms: Days Current Symptoms Are (Timing): Still Present Sick Contacts (Context): None Associated Symptoms: Chills, Myalgias Additional History Per: Patient Past Medical History Reviewed: Historical Data, Nursing Documentation, Vital Signs Vital Signs: Last Vital Signs Temp 98.7 F 04/20/17 05:17 Pulse 65 04/20/17 05:17 Resp 20 04/20/17 05:17 BP 99/67 L 04/20/17 05:17 Pulse Ox 100 04/20/17 05:58 - Medical History PMH: Benign Prostatic Hyperplasia, Bipolar Disorder, Depression, HTN Denies: Diabetes, Hepatitis, HIV, Chronic Kidney Disease, Seizures, Sexually Transmitted Disease Surgical History: Appendectomy - [facility] Procedures DETOXIFICATION SERVICES FOR SUBSTANCE ABUSE TREATMENT (10/02/15) GROUP AUTO LOCATOR FOR SUBSTANCE ABUSE TREATMENT, PSYCHOEDUCATION (10/02/15) Family History: States: Unknown Family Hx - Social History Hx Tobacco Use: No Hx Alcohol Use: Yes Hx Substance Use: No - Immunization History Hx Tetanus Toxoid Vaccination: No Hx Influenza Vaccination: No Hx Pneumococcal Vaccination: No Review Of Systems Constitutional: Positive for: Fever, Malaise (bodyaches) Cardiovascular: Negative for: Chest Pain Respiratory: Positive for: Cough. Negative for: Shortness of Breath Physical Exam - Physical Exam Appears: Non-toxic Skin: Normal Color, Warm, Dry Eye(s): bilateral: Normal Inspection Throat: Normal, No Erythema Neck: Normal ROM, Supple Chest: Symmetrical Cardiovascular: Rhythm Regular Respiratory: Normal Breath Sounds, Rhonchi (trace rhonchi bilaterally), No Wheezing Gastrointestinal/Abdominal: Normal Exam, Soft Neurological/Psych: Oriented x3 Gait: Steady ED Course And Treatment O2 Sat by Pulse Oximetry: 100 (RA) Pulse Ox Interpretation: Normal - Radiology CXR: Viewed By Vt CXR Interpretation: Yes: No Acute Disease. No: Infiltrates Progress Note: Albuterol nebulizer treatment, phernergan, motrin and benadryl given. CXR ordered. Reassessment Condition: Improved (Sx have improved. Pt in no resp distress. 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 - Scribe Statement The provider has reviewed the documentation as recorded by the Scribe (Anabel Hummel) Provider Scribe Attestation: All medical record entries made by the Scribe were at my direction and personally dictated by me. I have reviewed the chart and agree that the record accurately reflects my personal performance of the history, physical exam, medical decision making, and the department course for this patient. I have also personally directed, reviewed, and agree with the discharge instructions and disposition.
[2017-04-20] MEDS ORDERED: Promethazine/Cod 6.25mg-10mg/5ml Syr UD ONE (05:16)
[2017-04-20 05:18] VITALS: BP 99/67; PULSE 65; RESP 20; TEMP 98.7
[2017-04-20 05:54] VITALS: O2SAT 100
--- NOTE | 2017-04-20 08:32 | RAD ---
HISTORY: SOB, cough COMPARISON: 06/10/2015 TECHNIQUE: Chest PA and lateral FINDINGS: LUNGS: No active pulmonary disease. PLEURA: No significant pleural effusion identified. No pneumothorax apparent. CARDIOVASCULAR: Normal. OSSEOUS STRUCTURES: No significant abnormalities. VISUALIZED UPPER ABDOMEN: Normal. OTHER FINDINGS: None. IMPRESSION: No active disease.
== END 2017-04-20 05:20 | disposition home or self-care (01) ==
LOC: C.ER 03:13 → SUPCPDRO 03:13 → C.ER 05:20
DX: J11.1 Influenza due to unidentified influenza virus with other respiratory manifestations (principal)

== ENCOUNTER 2017-04-21 15:53 | Emergency (ER) | payer OTHER ==
[2017-04-21 16:10] VITALS: BP 138/86; PULSE 89; RESP 16; TEMP 97.3; O2SAT 99
--- NOTE | 2017-04-21 16:19 | C.PDOC ---
History Of Present Illness 51 y/o F c no PMHx of DM p/w R ear pain since yesterday. Denies current fever, stiff neck, or vomiting. Time Seen by Provider: 04/21/17 16:10 Chief Complaint (Nursing): ENT Problem Past Medical History Vital Signs: Last Vital Signs Temp 97.3 F L 04/21/17 16:06 Pulse 89 04/21/17 16:06 Resp 16 04/21/17 16:06 BP 138/86 04/21/17 16:06 Pulse Ox 99 04/21/17 16:06 - Medical History PMH: Bipolar Disorder, Depression, HTN Denies: Diabetes, Hepatitis, HIV, Chronic Kidney Disease, Seizures, Sexually Transmitted Disease Surgical History: Appendectomy - [facility] Procedures DETOXIFICATION SERVICES FOR SUBSTANCE ABUSE TREATMENT (10/02/15) GROUP MOTTLER OPERATOR FOR SUBSTANCE ABUSE TREATMENT, PSYCHOEDUCATION (10/02/15) Family History: States: Unknown Family Hx - Social History Hx Tobacco Use: No Hx Alcohol Use: Yes Hx Substance Use: No - Immunization History Hx Tetanus Toxoid Vaccination: No Hx Influenza Vaccination: No Hx Pneumococcal Vaccination: No Review Of Systems Except As Marked, All Systems Reviewed And Found Negative. Constitutional: Negative for: Fever Respiratory: Negative for: Shortness of Breath Physical Exam - Physical Exam Additional Physical Exam Comments: Gen: Appears uncomfortable, holding hand to R ear Head: NC/AT Eyes: No icterus ENT: R TM with fluid and canal swollen Neck: FROM, supple ED Course And Treatment O2 Sat by Pulse Oximetry: 99 Medical Decision Making Medical Decision Making: Instructed to follow up with primary care and instructed to return to ED for worsening fever, stiff neck, pain, vomiting. Disposition - Disposition Referrals: Maria Elena Gates MD [Staff Provider] - Disposition: HOME/ ROUTINE Disposition Time: 16:18 Condition: STABLE Prescriptions: Amoxicillin 875 mg PO BID #20 tablet Ibuprofen [Motrin Tab] 600 mg PO Q6H #24 tab Ofloxacin Otic 0.3% [Floxin 0.3% Otic Soln] 5 drop AD BID #1 bottle Instructions: Otitis Externa (ED) - Clinical Impression Clinical Impression: Otitis externa
[2017-04-21] MEDS ORDERED: Oxycodone/Acetaminophen 5/325 mg Tab PO STA (16:27)
[2017-04-21] MEDS ORDERED: Oxycodone/Acetaminophen 5/325 mg Tab ONE (16:31)
== END 2017-04-21 16:35 | disposition home or self-care (01) ==
LOC: C.ER 15:53
DX: H60.90 Unspecified otitis externa, unspecified ear (principal); I10 Essential (primary) hypertension
CPT/HCPCS: 96372; 99282; J1885